=== PATIENT | male | born 1990 | race American Indian/Alaskan Native ===

== ENCOUNTER 2019-11-23 06:17 | Emergency (ER) | payer SELFPAY ==
[2019-11-23 06:26] VITALS: BP 150/103
== END 2019-11-23 10:44 | disposition left against medical advice (07) ==
LOC: ED 06:17
DX: R51 Headache (principal); Z53.21 Procedure and treatment not carried out due to patient leaving prior to being seen by health care provider

== ENCOUNTER 2022-06-05 08:49 | Emergency (ER) | payer SELFPAY ==
--- NOTE | 2022-06-05 09:56 | Emergency Department Report ---
ED Lower Extremity HPI - General Chief Complaint: Extremity Injury, Lower Stated Complaint: FOOT PROBLEM Time Seen by Provider: 06/05/22 09:18 Source: patient Mode of arrival: Ambulatory Limitations: No Limitations - History of Present Illness Initial Comments: Mr. Heck is a 31-year-old male who comes to the emergency room after having weight as an weight lifting equipment fall on his left foot. He states the next day he had progressive toe pain involving his second fourth toe and extending proximally on his foot. He had no pain prior to the weight following. But someone told him that he might have gout. He has no history of gout. Patient neurovascularly intact and walking with a limp. Denies any other trauma. MD Complaint: foot injury -: Sudden, days(s) Injury: Foot: Left Type of Injury: blunt Place: home Severity: moderate Severity scale (0 -10): 4 Worsens With: movement Context: direct blow - Related Data Home Medications Medication Instructions Recorded Confirmed Last Taken No Known Home Medications [No 03/13/16 03/13/16 Unknown Reported Home Medications] Allergies Allergy/AdvReac Type Severity Reaction Status Date / Time No Known Allergies Allergy Verified 06/05/22 09:08 ED Review of Systems ROS: Stated complaint: FOOT PROBLEM Other details as noted in HPI Comment: All other systems reviewed and negative ED Past Medical Hx - Surgical History Past Surgical History?: No - Family History Family history: no significant - Social History Smoking Status: Current Every Day Smoker Substance Use Type: Alcohol - Medications Home Medications: Home Medications Medication Instructions Recorded Confirmed Last Taken Type No Known Home Medications [No 03/13/16 03/13/16 Unknown History Reported Home Medications] ED Physical Exam - General Limitations: No Limitations General appearance: alert, in no apparent distress - Head Head exam: Present: atraumatic, normocephalic - Eye Eye exam: Present: normal appearance - ENT ENT exam: Present: mucous membranes moist - Neck Neck exam: Present: normal inspection - Respiratory Respiratory exam: Present: normal lung sounds bilaterally. Absent: respiratory distress - Cardiovascular Cardiovascular Exam: Present: regular rate, normal rhythm. Absent: systolic murmur, diastolic murmur, rubs, gallop - GI/Abdominal GI/Abdominal exam: Present: soft, normal bowel sounds - Rectal Rectal exam: Present: deferred - Extremities Exam Extremities exam: Present: normal inspection - Back Exam Back exam: Present: normal inspection - Neurological Exam Neurological exam: Present: alert, oriented X3 - Psychiatric Psychiatric exam: Present: normal affect, normal mood - Skin Skin exam: Present: warm, dry, intact, normal color. Absent: rash ED Course Vital Signs 06/05/22 09:01 Temperature 98.7 F Pulse Rate 72 Respiratory 18 Rate Blood Pressure 138/94 [Left] O2 Sat by Pulse 98 Oximetry ED Lower Extremity MDM - Radiology Data Radiology results: report reviewed, image reviewed nap - Medical Decision Making Vital Signs 06/05/22 09:01 Temperature 98.7 F Pulse Rate 72 Respiratory 18 Rate Blood Pressure 138/94 [Left] O2 Sat by Pulse 98 Oximetry X-ray noted. Patient neurovascularly and peripheral vascularly intact. He does have soft tissue swelling. He is requesting a boot or splint for his foot. We will use crutches for comfort. NSAIDs and RICE for pain. Patient being discharged home with discharge plan of care including diet, activity, medications and follow-up. He will see orthopedics as instructed. Patient verbalizes understanding. - Differential Diagnosis ro fx Critical care attestation.: If time is entered above; I have spent that time in minutes in the direct care of this critically ill patient, excluding procedure time. ED Disposition Clinical Impression: Foot contusion Qualifiers: Encounter type: initial encounter Laterality: left Qualified Code(s): S90.32XA - Contusion of left foot, initial encounter Disposition: HOME / SELF CARE / HOMELESS Is pt being admited?: No Does the pt Need Aspirin: No Condition: Stable Instructions: Foot Contusion, [id number] Additional Instructions: ice rest elevate motrin or tylenol for pain crutches for confort follow up with ortho in 48 hours for recheck Referrals: FAY SEPULVEDA MD [Staff Physician] - 3-5 Days Forms: Work/School Release Form(ED) Time of Disposition: 10:06
--- NOTE | 2022-06-05 09:57 | XRay Report ---
LEFT FOOT 3 VIEWS [id number] INDICATION: pain COMPARISON: None available. FINDINGS: No fractures or dislocations seen. Minimal tarsal and ankle degenerative changes. No focal erosions seen. No soft tissue gas or foreign bodies. Mild soft tissue swelling is seen dorsally in th e distal foot however. Signer Name: Jeffery Hart MD Signed: 06/05/2022 9:53 AM Workstation Name: [id number]
[2022-06-05] MEDS ORDERED: IBUPROFEN 800 MG TAB PO ONE (10:03)
[2022-06-05] MEDS ORDERED: HYDROcodone/ACETAMINOPHEN 5-325 MG TAB PO ONE (10:11)
[2022-06-05 11:30] VITALS: BP 140/91
== END 2022-06-05 11:35 | disposition home or self-care (01) ==
LOC: ED 08:49
DX: S90.32XA Contusion of left foot, initial encounter (principal); F17.290 Nicotine dependence, other tobacco product, uncomplicated; W20.8XXA Other cause of strike by thrown, projected or falling object, initial encounter; Y93.89 Activity, other specified; Y92.89 Other specified places as the place of occurrence of the external cause; Y99.8 Other external cause status
CPT/HCPCS: 99283